=== PATIENT | female | born 1960 | race Caucasian/White ===

== ENCOUNTER → 2022-07-02 08:53 | Outpatient (CLI) | payer OTHER, SELFPAY ==
[2022-07-02 09:53] LABS: Add Manual Diff / Slide Review NO; Basophils Absolute Auto 0 /uL (0-100); Basophils Percent Auto 0.6 % (0-2); Eosinophils Absolute Auto 200 /uL (0-450); Eosinophils Percent Auto 2.4 % (2-4); Hematocrit 38.9 % (36-46); Hemoglobin 13.2 g/dL (12.0-16.0); Lymphocytes Absolute Auto 2200 /uL (1100-4500); Lymphocytes Percent Auto 33.6 % (25-40); Mean Corpuscular HGB Conc 33.9 % (30-36); Mean Corpuscular Hemoglobin 28.7 PG (26-34); Mean Corpuscular Volume 84.8 fL (80-100); Monocytes Absolute Auto 400 /uL (0-900); Monocytes Percent Auto 5.8 % (3-14); Neutrophils Absolute Auto 3800 /uL (1500-7000); Neutrophils Percent Auto 57.6 % (50-75); Platelet Count 247 X10^3/uL (150-400); Red Blood Cell Count 4.59 X10^6/uL (4.0-5.2); Red Cell Distribution Width 13.4 % (11.6-14.8); White Blood Cell Count 6.7 X10^3/uL (4.5-11.0)
[2022-07-02 10:08] LABS: HEMOLYSIS < 15 (0-50); Iron 84 ug/dL (37-170)
[2022-07-02 10:15] LABS: Alanine Aminotransferase 20 IU/L (<35); Albumin 4.5 g/dL (3.5-5.0); Albumin Globulin Ratio 1.7 (1.0-2.8); Alkaline Phosphatase 92 U/L (38-126); Aspartate Aminotransferase 26 IU/L (14-36); BUN Creatinine Ratio 8.5 (6-22); Bilirubin Total 0.7 mg/dL (0.2-1.3); Blood Urea Nitrogen 5 mg/dL (7-17); Calcium 9.3 mg/dL (8.4-10.2); Carbon Dioxide 31 mmol/L (22-32); Chloride 101 mmol/L (98-107); Cholesterol 240 mg/dL (140-199); Estimated Glomerular Filt Rate > 60 mL/min (>60); Globulin 2.7 g/dL (1.7-4.1); Glucose 91 mg/dL (80-110); HDL Cholesterol 83 mg/dL (40-60); HEMOLYSIS < 15 (0-50); LDL Cholesterol Calculated 133 mg/dL (<100); Potassium 4.1 mmol/L (3.4-5.1); Sodium 139 mmol/L (137-145); Total Protein 7.2 g/dL (6.3-8.2); Triglycerides 118 mg/dL (35-150)
[2022-07-02 10:18] LABS: Percent Iron Saturation 28 % (15-50); Total Iron Binding Capacity 298 ug/dL (265-497); Transferrin 236 mg/dL (206-381)
[2022-07-02 10:27] LABS: Vitamin D 25 Hydroxy (D3) 42.4 ng/mL (30.0-100.0)
[2022-07-02 10:42] LABS: Thyroid Stimulating Hormone 2.76 uIU/mL (0.47-4.68)
[2022-07-02 11:05] LABS: Vitamin B12 415 pg/mL (239-931)
== END ==
PROVIDERS: PCP Family Medicine; Referring Provider Family Medicine; Visit Provider Family Medicine
DX: Z00.01 Encounter for general adult medical examination with abnormal findings (principal); E56.9 Vitamin deficiency, unspecified; Z78.9 Other specified health status; Z13.0 Encounter for screening for diseases of the blood and blood-forming organs and certain disorders involving the immune mechanism; E78.2 Mixed hyperlipidemia
CPT/HCPCS: 36415; 80053; 80061; 82306; 82607; 83540; 83550; 84443; 85025

== ENCOUNTER → 2023-02-26 12:00 | Outpatient (CLI) | payer OTHER, SELFPAY ==
--- NOTE | 2023-02-26 12:02 | DI.US.S_ITS ---
LIMITED ULTRASOUND OF LEFT BREAST AND AXILLA: 02/26/2023 CLINICAL: Palpable left breast lump. Comparison is made to exam dated: 02/26/2023 mammogram - [facility]. Color flow and real-time ultrasound of the left breast 11-12 o'clock, and axilla regions were performed. There is a 0.8 cm x 0.8 cm x 0.7 cm irregular mass with a spiculated margin in the left breast at 12 o'clock, 5 cm from the nipple. This corresponds to the spiculated mass seen on mammogram. At 11:30 o'clock, 6 cm from the nipple, there is an oval hypoechoic mass with circumscribed margin with visible skin tract consistent with a skin based finding. The mass measures 1.0 x 0.7 x 1.0 cm. This finding corresponds to the oval, circumscribed mass in the upper inner quadrant located superomedial to the spiculated mass. There are at least two morphologically abnormal left axillary lymph nodes with eccentrically thickened cortex. IMPRESSION: SUSPICIOUS OF MALIGNANCY 1) Left breast 0.8 cm spiculated mass at 12 o'clock. Finding is suspicious. Recommend ultrasound guided core biopsy. Patient will contacted to schedule the biopsy. 2) At least 2 morphologically abnormal left axillary lymph nodes. Finding is suspicious. Recommend ultrasound guided core biopsy of the most accessible lymph node. Patient will contacted to schedule the biopsy. 3) Left breast 1.0 cm skin based mass, likely an inclusion cyst, at 11:30 o'clock position. Finding is benign. Findings and recommendations were discussed with patient by Dr. Lala at the time of imaging completion. This exam was interpreted at Station ID: [id number]. Electronically Signed By: Isidra Soriano M.D., PH.D eb/:02/26/2023 16:19:02 letter sent: Biopsy Required Ultrasound BI-RADS: 4 Suspicious for malignancy
--- NOTE | 2023-02-26 12:02 | DI.MG.S_ITS ---
BILATERAL DIGITAL DIAGNOSTIC MAMMOGRAM 3D/2D: 02/26/2023 CLINICAL: Palpable left breast lump. Baseline exam. No prior exams were available for comparison. There are scattered areas of fibroglandular density in both breasts (category b / 25%-50% glandular tissue). There is a 0.9 cm irregular mass with a spiculated margin in the left breast at 12 o'clock posterior depth. There is an adjacent 1.0 oval low density mass with a circumscribed margin located superomedial to the spiculated mass. There is an enlarged and cortically thickened left axillary lymph node. No other significant masses, calcifications, or other findings are seen in either breast. IMPRESSION: INCOMPLETE: NEEDS ADDITIONAL IMAGING EVALUATION Left breast 0.9 cm spiculated mass at 12 o'clock and adjacent superomedial 1.0 cm oval circumscribed mass in the upper inner quadrant. An ultrasound is recommended for further evaluation and is scheduled to immediately follow this examination. Based on the Tyrer Cuzick model (a risk assessment model) the patient's lifetime risk is 7.1% and her 10 year risk is 3.3%. According to the ACR, ACS, and NCCN guidelines, an annual breast MRI exam along with mammogram is recommended if the patient's lifetime risk is 20% or greater. This exam was interpreted at Station ID: [id number]. NOTE: For mammograms, a report in lay terms will be sent to the patient. Approximately 15% of breast malignancies will not be visualized mammographically. In the management of a palpable breast mass, a negative mammogram must not discourage biopsy of a clinically suspicious lesion. Electronically Signed By: Isidra Soriano M.D., PH.D eb/:02/26/2023 15:41:06 ACR BI-RADS Category 0: Incomplete 3340F
== END ==
PROVIDERS: PCP Family Medicine; Referring Provider Physician Assistant Medical; Visit Provider Physician Assistant Medical
DX: N60.02 Solitary cyst of left breast (principal); R92.8 Other abnormal and inconclusive findings on diagnostic imaging of breast; N63.25 Unspecified lump in the left breast, overlapping quadrants; N63.22 Unspecified lump in the left breast, upper inner quadrant; R59.0 Localized enlarged lymph nodes
CPT/HCPCS: 76642; 77066; G0279

== ENCOUNTER → 2023-08-16 12:02 | Outpatient (CLI) | payer OTHER, SELFPAY ==
--- NOTE | 2023-08-16 12:04 | DI.US.S_ITS ---
PROCEDURE: US PELVIC COMPLETE INDICATIONS: hx of uterine fibroids TECHNIQUE: Real-time scanning was performed of the pelvic organs, with image documentation. Additional endovaginal scanning was necessary due to incomplete visualization of the adnexal and endometrial structures by transabdominal scanning. COMPARISON: None. FINDINGS: Uterus: Uterus is anteverted and enlarged in size at 8.6 x 5.1 x 6.8 cm. The myometrium is heterogeneous. 2.9 x 2.5 x 2.4 cm intramural fibroid in left anterior myometrium is seen. 2.5 x 2.2 x 2.3 cm intramural fibroid is seen in anterior lower uterine segment. 2.3 x 2.6 x 2.5 cm intramural fibroid is seen in posterior myometrium. The endometrium measures 5 mm combined thickness. No endometrial mass or fluid is seen. Ovaries: Bilateral ovaries are not visualized. No adnexal masses are seen. Other: No pathologic free abdominal or pelvic fluid. IMPRESSION: Enlarged uterus with multiple uterine fibroids as described above. No gross endometrial mass or fluid. Ovaries are not visualized. No gross adnexal mass. We strive to produce accurate, complete, and clear reports of imaging services. To assist us in improving patient care, this report was composed using standard report templates and voice recognition software. Therefore, it may contain abnormal punctuation, insertions and/or omissions. Occasional wrong-word or sound-alike substitutions may occur. Though we review the report and make efforts to correct it, we do recommend that the report be read carefully in proper context to recognize any text inaccuracies. Dictated by: Steve Fountain M.D. on 08/16/2023 at 14:13 Approved by: Setve Fountain M.D. on 08/16/2023 at 14:15
== END ==
LOC: US 12:03
PROVIDERS: PCP Family Medicine; Referring Provider Physician Assistant Medical; Visit Provider Physician Assistant Medical
DX: D25.1 Intramural leiomyoma of uterus (principal); R19.8 Other specified symptoms and signs involving the digestive system and abdomen
CPT/HCPCS: 76830; 76856

== ENCOUNTER → 2024-02-22 09:00 | Outpatient (CLI) | payer MEDICARE, OTHER, SELFPAY ==
[2024-02-22 10:19] LABS: Alanine Aminotransferase 31 IU/L (<35); Albumin 4.4 g/dL (3.5-5.0); Albumin Globulin Ratio 2.1 (1.0-2.8); Alkaline Phosphatase 61 U/L (38-126); Aspartate Aminotransferase 34 IU/L (14-36); BUN Creatinine Ratio 13.1 (6-22); Bilirubin Total 0.5 mg/dL (0.2-1.3); Blood Urea Nitrogen 8 mg/dL (7-17); Calcium 9.5 mg/dL (8.4-10.2); Carbon Dioxide 30 mmol/L (22-32); Chloride 103 mmol/L (98-107); Cholesterol 216 mg/dL (140-199); Estimated Glomerular Filt Rate > 60 mL/min (>60); Globulin 2.1 g/dL (1.7-4.1); Glucose 91 mg/dL (80-110); HDL Cholesterol 73 mg/dL (40-60); HEMOLYSIS < 15 (0-50); LDL Cholesterol Calculated 126 mg/dL (<100); Potassium 4.5 mmol/L (3.4-5.1); Sodium 135 mmol/L (137-145); Total Protein 6.5 g/dL (6.3-8.2); Triglycerides 86 mg/dL (35-150)
[2024-02-22 10:21] LABS: Hemoglobin A1C% w Est Avg Glu 5.5 % (4.0-6.0)
[2024-02-22 10:33] LABS: Vitamin D 25 Hydroxy (D3) 66.2 ng/mL (30.0-100.0)
== END ==
PROVIDERS: PCP Family Medicine; Referring Provider Family Medicine; Visit Provider Family Medicine
DX: E56.9 Vitamin deficiency, unspecified (principal); R73.09 Other abnormal glucose; E78.2 Mixed hyperlipidemia; E55.9 Vitamin D deficiency, unspecified
CPT/HCPCS: 36415; 80053; 80061; 82306; 83036

== ENCOUNTER → 2024-10-16 08:55 | Outpatient (CLI) | payer MEDICARE, OTHER, SELFPAY ==
[2024-10-16 09:18] LABS: Add Manual Diff / Slide Review NO; Basophils Absolute Auto 0 /uL (0-100); Basophils Percent Auto 0.5 % (0-2); Eosinophils Absolute Auto 200 /uL (0-450); Eosinophils Percent Auto 3.4 % (2-4); Hematocrit 40.3 % (36-46); Hemoglobin 13.8 g/dL (12.0-16.0); Lymphocytes Absolute Auto 1900 /uL (1100-4500); Lymphocytes Percent Auto 37.7 % (25-40); Mean Corpuscular HGB Conc 34.2 % (30-36); Mean Corpuscular Hemoglobin 29.7 PG (26-34); Mean Corpuscular Volume 86.9 fL (80-100); Monocytes Absolute Auto 400 /uL (0-900); Monocytes Percent Auto 8.4 % (3-14); Neutrophils Absolute Auto 2600 /uL (1500-7000); Platelet Count 210 X10^3/uL (150-400); Red Blood Cell Count 4.64 X10^6/uL (4.0-5.2); Red Cell Distribution Width 13.4 % (11.6-14.8); White Blood Cell Count 5.1 X10^3/uL (4.5-11.0)
[2024-10-16 09:50] LABS: BUN Creatinine Ratio 15.5 (6-22); Blood Urea Nitrogen 11 mg/dL (7-17); Calcium 9.4 mg/dL (8.4-10.2); Carbon Dioxide 30 mmol/L (22-32); Chloride 103 mmol/L (98-107); Estimated Glomerular Filt Rate > 60 mL/min (>60); Glucose 88 mg/dL (70-99); HEMOLYSIS < 15 (0-50); Potassium 4.7 mmol/L (3.4-5.1); Sodium 138 mmol/L (137-145)
== END ==
PROVIDERS: PCP Family Medicine; Referring Provider Family Medicine; Visit Provider Family Medicine
DX: C50.912 Malignant neoplasm of unspecified site of left female breast (principal); S84.91XA Injury of unspecified nerve at lower leg level, right leg, initial encounter
CPT/HCPCS: 36415; 80048; 84155; 84165; 85025; 86038

== ENCOUNTER → 2024-11-23 11:27 | Outpatient (CLI) | payer MEDICARE, OTHER, SELFPAY ==
--- NOTE | 2024-11-23 11:30 | DI.MRI.S_ITS ---
PROCEDURE: MR LUMBAR SPINE WO CON INDICATIONS: numbness foot with NCS 11/16 pointing to lumbar spine etiolog TECHNIQUE: Noncontrast sagittal T1 spin echo and T2 fast echo, sagittal STIR, and T2 fast spin echo through the lumbar spine. In cases with scoliosis, additional coronal T2 fast spin echo may be performed. COMPARISON: None. FINDINGS: Image quality: Excellent. Alignment and Curvature: Grade 1 anterolisthesis of L5 on S1 with chronic pars defects. Alignment is otherwise normal.. Bone Marrow: Marrow is of normal overall signal. No acute vertebral body compression fractures. Spinal Cord: Conus medullaris terminates at the L1 level. Visualized cord demonstrates normal signal and size. Paraspinous Soft Tissues: No paravertebral masses. The combination of disc bulging with endplate spurring and facet arthropathy result in the following: T12-L1: Normal appearance. L1-L2: Normal appearance. L2-L3: Shallow disc bulge with facet arthropathy with mild bilateral foraminal stenosis. L3-L4: Mild central canal stenosis with moderate bilateral foraminal stenosis. L4-L5: Severe central canal stenosis with severe bilateral foraminal stenosis. L5-S1: Severe central canal stenosis with severe bilateral foraminal stenosis. IMPRESSION: Multilevel degenerative disc disease results in varying degrees of central canal and foraminal stenosis most pronounced at the L4-L5 and L5-S1 levels. Dictated by: Mckayla Pavon M.D. on 11/23/2024 at 14:50 Approved by: Mckayla Pavon M.D. on 11/23/2024 at 15:10
== END ==
PROVIDERS: Family Provider Family Medicine; PCP Family Medicine; Referring Provider Family Medicine; Visit Provider Family Medicine
DX: C50.919 Malignant neoplasm of unspecified site of unspecified female breast (principal); S84.91XA Injury of unspecified nerve at lower leg level, right leg, initial encounter; R20.0 Anesthesia of skin; R94.130 Abnormal response to nerve stimulation, unspecified; M43.17 Spondylolisthesis, lumbosacral region; M51.369 Other intervertebral disc degeneration, lumbar region without mention of lumbar back pain or lower extremity pain; M48.061 Spinal stenosis, lumbar region without neurogenic claudication; M48.07 Spinal stenosis, lumbosacral region
CPT/HCPCS: 72148